=== PATIENT | male | born 1990 | race Caucasian/White ===

== ENCOUNTER 2019-08-11 15:03 | Emergency (ER) | payer SELFPAY ==
[2019-08-11 15:16] VITALS: BP 162/82; PULSE 111; RESP 18; TEMP 36.9; O2SAT 97; BMI 34.4
--- NOTE | 2019-08-11 16:02 | ED_ITS ---
HPI - Extremity Injury (Lower) General: Chief Complaint: Extremity Problem,Nontraumatic Stated Complaint: right knee pain Time Seen by Provider: 08/11/19 15:58 Source: patient Mode of arrival: ambulatory Limitations: no limitations History of Present Illness: HPI Narrative: Patient is a 29-year-old male who presents to ED today with a complaint of right knee pain. Patient states he has had intermittent pain in the knee for several years and states it will often swell up for several days and then subside. Patient states he has had several evaluations through emergency departments and primary care providers and has had several x-rays and CT scans of the extremity but never diagnosed with anything. Patient states 4 to 5 days ago he was helping his sister move some heavy furniture and began noticing later that evening his knee hurting. Patient states he is ambulatory but it is becoming more and more difficult due to pain and swelling. complaint: knee injury Onset (ago): day(s) Injury: Right: knee Relieving factors: immobilization Exacerbating factors: weight bearing, movement and palpation Review of Systems Musc: Reports: joint pain and joint swelling; Denies: neck pain, back pain, extremity pain, extremity swelling, joint redness or joint warmth Skin/Breast: Denies: erythema, new lesions or changes in skin color Neuro: Denies: numbness in extremities or weakness in extremities PFSH ED PFSH: Social History Smoking and tobacco status: current every day smoker Physical Exam Const: COMMON NORMALS: no acute distress, patient oriented x3 and alert Extremity: OTHER: TTP medial R knee; pt with obvious prepatellar knee effusion; knee is not warm to red; he maintains ROM; distal leg with no calf swelling or tenderness; DP/PT pulses and cap refill intact; he has no posterior knee swelling Neuro: COMMON NORMALS: patient oriented x3 SENSORIUM/ORIENTATION: Yes alert Skin: COMMON NORMALS: no rashes or lesions noted GENERAL SKIN EXAM: no rashes or lesions noted Course Vital Signs: Vital signs: Vital Signs Temperature 98.4 F 08/11/19 15:16 Pulse Rate 111 H 08/11/19 15:16 Respiratory Rate 18 08/11/19 15:16 Blood Pressure 162/82 08/11/19 15:16 Pulse Oximetry 97 08/11/19 15:16 MDM - Extremity Injury (Lower) MDM Narrative: Medical decision making narrative: Patient has no direct injury or trauma to the knee. He reportedly has had multiple x-rays performed previously. 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 He is requesting [place] wrap and crutches for comfort as ambulation is becoming painful. We will treat with anti-inflammatories and steroids. I will have his information placed with case management so they can set him up with a PCP for further evaluation and possible MRI if indicated. Discharge Plan Discharge Patient Disposition: Home, Self-Care Clinical Impression: Chronic pain of right knee, Effusion of right knee Condition: Stable Prescriptions: New diclofenac sodium 50 mg tablet,delayed release (DR/EC) 50 mg PO Q12H PRN (Reason: pain) Qty: 20 RF: 0 Medrol (Evelio) 4 mg tablets,dose pack See Rx Instructions .ROUTE .COMPLEX Qty: 21 RF: 0 Discharge Orders: Discharge Order (Routine); Ordered 08/11/19 Ordered By: Kalyani Parisi Patient Instructions: Knee Effusion (ED), RICE Therapy (ED) Activity Restrictions/Additional Instructions: As discussed case management will contact you to set you up with primary care for further evaluation. 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
--- NOTE | 2019-08-14 10:57 | DCPLANNER ---
manager studio had message to speak with patient about getting established with a primary care physician. manager studio spoke with patient, he stated that he does not have a primary care, but would like one. Patient stated that he would like for case technician to get patient established with someone at [facility]. manager studio faxed patients information to [facility] for review. manager studio will check with [facility] to confirm who accepted patient.
--- NOTE | 2019-09-17 09:47 | DCPLANNER ---
outcomes manager called [facility], spoke with Ondina, was told that clinic did not receive referral for patient. outcomes manager sent referral again to [facility] attention to Ondina for patient to get established with a primary care physician.
== END 2019-08-11 16:31 | disposition home or self-care (01) ==
PROVIDERS: Emergency Provider Physician Assistant
DX: G89.29 Other chronic pain (principal); M25.561 Pain in right knee; M25.461 Effusion, right knee; F17.210 Nicotine dependence, cigarettes, uncomplicated
CPT/HCPCS: 12345; 99281; 99283; E0114

== ENCOUNTER 2019-08-15 20:22 | Emergency (ER) | payer SELFPAY ==
[2019-08-15 21:09] VITALS: BP 150/52; PULSE 95; RESP 16; TEMP 36.9; O2SAT 96; BMI 35.0
== END 2019-08-15 21:40 ==
LOC: ER 21:05
PROVIDERS: Emergency Provider Emergency Medicine
DX: Z53.21 Procedure and treatment not carried out due to patient leaving prior to being seen by health care provider (principal)
CPT/HCPCS: 99281